=== PATIENT | male | born 1995 | race African-American/Black ===

== ENCOUNTER 2018-12-18 09:01 | Emergency (ER) | payer SELFPAY ==
[2018-12-18] MEDS ORDERED: NORMAL SALINE 1000 ML 1,000 ML IV ONE (09:32)
--- NOTE | 2018-12-18 09:33 | ER Document Report ---
ED Medical Screen (RME) - General Chief Complaint: Rectal Bleeding Stated Complaint: URINARY PROBLEM Time Seen by Provider: 12/18/18 09:30 Mode of Arrival: Ambulatory Information source: Patient Notes: Patient presents complaining of abdominal pain and rectal bleeding that is been off and on for the past 6 months but has started to become daily. Patient states sometimes he will have pain without bleeding sometimes bleeding without pain. Patient states that sometimes the stool is firm sometimes he has diarrhea. Patient denies any fever. Patient denies any hemorrhoids. Patient denies any other abnormal bleeding or bruising I have greeted and performed a rapid initial assessment of this patient. A comprehensive ED assessment and evaluation of the patient, analysis of test results and completion of the medical decision making process will be conducted by additional ED providers. TRAVEL OUTSIDE OF THE [place] IN LAST 30 DAYS: No - Related Data Allergies/Adverse Reactions: No Known Allergies Allergy (Verified 12/18/18 09:30) Physical Exam - Vital signs Vitals: Temp Pulse Resp BP Pulse Ox 98.3 F 68 18 106/55 L 100 12/18/18 09:08 12/18/18 09:08 12/18/18 09:08 12/18/18 09:08 12/18/18 09:08 - Abdominal Tenderness: Tender - Generalized abdomen Course - Vital Signs Vital signs: Temp Pulse Resp BP Pulse Ox 98.3 F 68 18 106/55 L 100 12/18/18 09:08 12/18/18 09:08 12/18/18 09:08 12/18/18 09:08 12/18/18 09:08
[2018-12-18 10:20] LABS: ABSOLUTE BASOPHILS # (AUTO) 0.1 10^3/uL (0.0-0.2); ABSOLUTE EOSINOPHILS # (AUTO) 0.1 10^3/uL (0.0-0.6); ABSOLUTE LYMPHOCYTES (AUTO) 1.9 10^3/uL (0.5-4.7); ABSOLUTE MONOCYTES (AUTO) 0.5 10^3/uL (0.1-1.4); ABSOLUTE NEUT (AUTO) 2.6 10^3/uL (1.7-8.2); BASOPHILS % (AUTO) 1.4 % (0-2); EOSINOPHILS % (AUTO) 1.9 % (0-6); HEMATOCRIT 36.4 % (37.9-51.0); LYMPHOCYTES % (AUTO) 36.5 % (13-45); MEAN CORPUSCULAR HEMOGLOBIN 29.2 pg (27.0-33.4); MEAN CORPUSCULAR VOLUME 88 fl (80-97); MONOCYTES % (AUTO) 9.6 % (3-13); PLATELET COUNT 217 10^3/uL (150-450); RED BLOOD COUNT 4.11 10^6/uL (4.35-5.55); RED CELL DISTRIBUTION WIDTH 13.8 % (11.5-14.0); SEGMENTED NEUTROPHILS % (AUTO) 50.6 % (42-78); TOTAL CELLS COUNTED % (AUTO) 100 %; WHITE BLOOD COUNT 5.2 10^3/uL (4.0-10.5)
[2018-12-18 10:27] LABS: INTERNATIONAL RATION (INR) 1.03; PROTHROMBIN TIME 13.6 SEC (11.4-15.4)
[2018-12-18 10:28] LABS: PARTIAL THROMBOPLASTIN TIME 28.6 SEC (23.5-35.8)
[2018-12-18 11:10] LABS: AMORPHOUS SEDIMENT,URINE TRACE /HPF; APPEARANCE,URINE CLOUDY; BILIRUBIN,URINE NEGATIVE (NEGATIVE); COLOR,URINE YELLOW; GLUCOSE, URINE NEGATIVE (NEGATIVE); KETONES,URINE NEGATIVE (NEGATIVE); LEUKOCYTE ESTERASE,URINE NEGATIVE (NEGATIVE); NITRITE,URINE NEGATIVE (NEGATIVE); PROTEIN,URINE NEGATIVE (NEGATIVE); URINE SPECIFIC GRAVITY 1.024; UROBILINOGEN,URINE NEGATIVE mg/dL (<2.0)
[2018-12-18 11:47] LABS: ALANINE AMINOTRANSFERASE 22 U/L (21-72); ALBUMIN 4.2 g/dL (3.5-5.0); ALKALINE PHOSPHATASE 48 U/L (38-126); ANION GAP 6 (5-19); ASPARTATE AMINO TRANSFERASE 32 U/L (17-59); BILIRUBIN,DIRECT 0.2 mg/dL (0.0-0.4); BILIRUBIN,TOTAL 0.3 mg/dL (0.2-1.3); BLOOD UREA NITROGEN 12 mg/dL (7-20); CALCIUM 8.9 mg/dL (8.4-10.2); CARBON DIOXIDE 28 mmol/L (22-30); CHLORIDE 108 mmol/L (98-107); GLUCOSE 87 mg/dL (75-110); POTASSIUM 4.7 mmol/L (3.6-5.0); TOTAL PROTEIN 7.3 g/dL (6.3-8.2)
--- NOTE | 2018-12-18 12:04 | ER Document Report ---
ED General - General Chief Complaint: Rectal Bleeding Stated Complaint: URINARY PROBLEM Time Seen by Provider: 12/18/18 09:30 Primary Care Provider: ANATOLIY HOOKS MD [ACTIVE STAFF] - Follow up in 1 week (FOR GI FOLLOW UP) Mode of Arrival: Ambulatory TRAVEL OUTSIDE OF THE [place] IN LAST 30 DAYS: No - HPI Notes: 23-year-old male to the emergency department with complaints of rectal bleeding for the past 6 months. States initially it was just intermittent in occurrence but now he has had rectal bleeding every single day. States that he notices it most when he is going to the bathroom. States he sees the blood both in the toilet bowl and on the toilet paper. States that he has been having harder bowel movements and often will be straining during bowel movement. States that he has around 4 bowel movements a day. States that prior to having the bowel movements he has lower abdominal cramping which is then relieved by evacuation. States that he does not hydrate regularly. Denies fevers, chills, chest pain, shortness of breath, passing out, lightheadedness. He has not seen any physician for this problem until now. He does smoke. He does not have any history of inflammatory bowel disease in himself or in family. He does not have any family history of colon cancer. - Related Data Allergies/Adverse Reactions: No Known Allergies Allergy (Verified 12/18/18 09:30) Past Medical History - General Information source: Patient - Social History Smoking Status: Current Every Day Smoker Chew tobacco use (# tins/day): No Frequency of alcohol use: Occasional Drug Abuse: None Family History: Reviewed & Not Pertinent, Other - No hx of IBD or Colon cancer Patient has suicidal ideation: No Patient has homicidal ideation: No Renal/ Medical History: Denies: Hx Peritoneal Dialysis Review of Systems - Review of Systems Constitutional: denies: Chills, Fever EENT: No symptoms reported Cardiovascular: denies: Chest pain, Palpitations, Syncope, Dizziness, Lightheaded Respiratory: denies: Cough, Short of breath Gastrointestinal: Abdominal pain - abdominal cramping prior to having bowel movement, Constipation, Rectal bleeding. denies: Diarrhea, Nausea, Vomiting, Blood streaked bowels, Black stools Genitourinary: No symptoms reported Skin: No symptoms reported Neurological/Psychological: No symptoms reported -: Yes All other systems reviewed and negative Physical Exam - Vital signs Vitals: Temp Pulse Resp BP Pulse Ox 98.3 F 68 18 106/55 L 100 12/18/18 09:08 12/18/18 09:08 12/18/18 09:08 12/18/18 09:08 12/18/18 09:08 Interpretation: Normal - General General appearance: Appears well, Alert - HEENT Head: Normocephalic, Atraumatic Eyes: Normal Pupils: PERRL - Respiratory Respiratory status: No respiratory distress Chest status: Nontender Breath sounds: Normal Chest palpation: Normal - Cardiovascular Rhythm: Regular Heart sounds: Normal auscultation Murmur: No - Abdominal Inspection: Normal Distension: No distension Bowel sounds: Normal Tenderness: Nontender Organomegaly: No organomegaly - Rectal Notes: Initially patient agreed to rectal exam. Was able to inspect the outside of the rectum with noted external hemorrhoids that were not actively bleeding. With patient's permission, went to perform digital rectal exam however prior to completing exam patient requested to not have exam. Chaperoned by KAYLEE Oviedo. - Neurological Neuro grossly intact: Yes Cognition: Normal Orientation: AAOx4 Spur Coma Scale Eye Opening: Spontaneous Devin Coma Scale Verbal: Oriented Devin Coma Scale Motor: Obeys Commands Devin Coma Scale Total: 15 Speech: Normal Motor strength normal: LUE, RUE, LLE, RLE Sensory: Normal - Psychological Associated symptoms: Normal affect, Normal mood - Skin Skin Temperature: Warm Skin Moisture: Dry Skin Color: Normal Course - Vital Signs Vital signs: Temp Pulse Resp BP Pulse Ox 98.3 F 68 18 106/55 L 100 12/18/18 09:08 12/18/18 09:08 12/18/18 09:08 12/18/18 09:08 12/18/18 09:08 - Laboratory Result Diagrams: 12/18/18 09:56 12/18/18 11:16 Laboratory results interpreted by me: 12/18/18 12/18/18 09:56 11:16 RBC 4.11 L Hgb 12.0 L Hct 36.4 L Chloride 108 H - Transfer of Care Notes: 12/18/18 12:37 Impression: Rectal bleeding, external hemorrhoids. Patient would not allow for full digital rectal exam. Noted H&H which are stable as well as vital signs. Patient's history is most consistent with constipation and straining which could lead to his external hemorrhoids that bleed. Will send home with MiraLAX and Anusol but will also send home with GI consultation. Patient agrees with the plan and urged the importance of following up with GI. Discharge - Discharge Clinical Impression: External hemorrhoid, Rectal bleeding, Constipation Condition: Good Disposition: HOME, SELF-CARE Instructions: Constipation ([facility]), Hemorrhoids ([facility]), Rectal Bleeding, Unclear Cause ([facility]) Additional Instructions: USE MEDICINE PRESCRIBED. FOLLOW UP WITH GI SPECIALIST WITHOUT FAIL. RETURN IF WORSENING BLEEDING, PASSING OUT, CHEST PAIN. Prescriptions: Phenylephrine HCl [Anusol Suppository] 1 supp.rect [place] BID #28 supp.rect Polyethylene Glycol 3350 [Miralax Powder 17 gm/Packet] 1 packet PO DAILY #1 pkg Referrals: ANATOLIY HOOKS MD [ACTIVE STAFF] - Follow up in 1 week (FOR GI FOLLOW UP)
[2018-12-18 12:54] VITALS: BP 101/57
== END 2018-12-18 12:54 | disposition home or self-care (01) ==
LOC: ER 09:01
DX: K62.5 Hemorrhage of anus and rectum (principal); K64.4 Residual hemorrhoidal skin tags; K59.00 Constipation, unspecified; R10.30 Lower abdominal pain, unspecified; F17.200 Nicotine dependence, unspecified, uncomplicated
CPT/HCPCS: 99283; 96360; 36415; 85025; 85610; 85730; 80053; 81001; J7030

== ENCOUNTER 2019-06-25 02:39 | Emergency (ER) | payer SELFPAY ==
[2019-06-25] MEDS ORDERED: DIPH/PERTUSS(ACELL)/TETANUS VAC/PF 0.5 ML SYR (>=10YO) IM ONE (02:50)
[2019-06-25] MEDS ORDERED: LORAZEPAM INJ 2 MG/1 ML VIAL IV ONE (02:57)
[2019-06-25 03:06] LABS: ABSOLUTE BASOPHILS # (AUTO) 0.1 10^3/uL (0.0-0.2); ABSOLUTE LYMPHOCYTES (AUTO) 4.2 10^3/uL (0.5-4.7); ABSOLUTE MONOCYTES (AUTO) 0.8 10^3/uL (0.1-1.4); ABSOLUTE NEUT (AUTO) 4.8 10^3/uL (1.7-8.2); BASOPHILS % (AUTO) 0.8 % (0-2); EOSINOPHILS % (AUTO) 0.3 % (0-6); HEMATOCRIT 30.3 % (37.9-51.0); HEMOGLOBIN 9.2 g/dL (13.5-17.0); LYMPHOCYTES % (AUTO) 42.1 % (13-45); MEAN CORPUSCULAR HEMOGLOBIN 20.5 pg (27.0-33.4); MEAN CORPUSCULAR HGB CONC 30.6 g/dL (32.0-36.0); MEAN CORPUSCULAR VOLUME 67 fl (80-97); MONOCYTES % (AUTO) 8.3 % (3-13); PLATELET COUNT 316 10^3/uL (150-450); RED BLOOD COUNT 4.52 10^6/uL (4.35-5.55); RED CELL DISTRIBUTION WIDTH 21.1 % (11.5-14.0); SEGMENTED NEUTROPHILS % (AUTO) 48.5 % (42-78); TOTAL CELLS COUNTED % (AUTO) 100 %
[2019-06-25 03:16] LABS: ALBUMIN 5.1 g/dL (3.5-5.0); ALCOHOL 198 mg/dL (NONE DETECTED); ALKALINE PHOSPHATASE 54 U/L (38-126); ASPARTATE AMINO TRANSFERASE 36 U/L (17-59); BILIRUBIN,DIRECT 0.2 mg/dL (0.0-0.4); BILIRUBIN,TOTAL 0.4 mg/dL (0.2-1.3); BLOOD UREA NITROGEN 9 mg/dL (7-20); CALCIUM 9.5 mg/dL (8.4-10.2); CARBON DIOXIDE 16 mmol/L (22-30); GLUCOSE 149 mg/dL (75-110); PROTHROMBIN TIME 14.2 SEC (11.4-15.4); TOTAL PROTEIN 8.8 g/dL (6.3-8.2)
[2019-06-25 03:20] LABS: ANION GAP 22 (5-19); CHLORIDE 108 mmol/L (98-107)
[2019-06-25] MEDS ORDERED: HALOPERIDOL LACTATE INJ 5 MG/1 ML VIAL IV ONE ×4 (03:29→05:46)
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
[2019-06-25 04:22] LABS: APPEARANCE,URINE CLEAR; BILIRUBIN,URINE NEGATIVE (NEGATIVE); COLOR,URINE STRAW; GLUCOSE, URINE NEGATIVE (NEGATIVE); KETONES,URINE NEGATIVE (NEGATIVE); LEUKOCYTE ESTERASE,URINE NEGATIVE (NEGATIVE); NITRITE,URINE NEGATIVE (NEGATIVE); PROTEIN,URINE NEGATIVE (NEGATIVE); URINE SPECIFIC GRAVITY 1.047; UROBILINOGEN,URINE NEGATIVE mg/dL (<2.0)
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
[2019-06-25 04:39] LABS: URINE AMPHETAMINES SCREEN NEGATIVE; URINE BARBITURATES SCREEN NEGATIVE; URINE BENZODIAZEPINES SCREEN NEGATIVE; URINE COCAINE SCREEN NEGATIVE; URINE METHADONE SCREEN NEGATIVE; URINE PHENCYCLIDINE SCREEN NEGATIVE
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
[2019-06-25 04:46] LABS: URINE MARIJUANA (THC) SCREEN UNCONFIRMED POSITIVE
[2019-06-25] MEDS ORDERED: NORMAL SALINE 500 ML IV ONE (05:15)
[2019-06-25] MEDS ORDERED: HALOPERIDOL LACTATE INJ 5 MG/1 ML VIAL ONE (05:35)
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
[2019-06-25] MEDS ORDERED: ONDANSETRON HCL INJ/PF 4 MG/2 ML SDV IV ONE (06:26)
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
[2019-06-25 07:41] VITALS: BP 129/86
--- NOTE | 2019-06-25 09:11 | EKG REPORT ---
SEVERITY:- BORDERLINE ECG - SINUS RHYTHM BORDERLINE PROLONGED QT INTERVAL : Confirmed by: Sidney Martinez MD 25-Jun-2019 09:10:41
== END 2019-06-25 07:38 | disposition short-term general hospital (02) ==
LOC: ER 02:39
DX: S09.93XA Unspecified injury of face, initial encounter (principal); S09.8XXA Other specified injuries of head, initial encounter; Y04.2XXA Assault by strike against or bumped into by another person, initial encounter; E87.2 Acidosis; R56.9 Unspecified convulsions; R11.10 Vomiting, unspecified; F17.200 Nicotine dependence, unspecified, uncomplicated; Z23 Encounter for immunization; R40.2420 Glasgow coma scale score 9-12, unspecified time
CPT/HCPCS: 93005; 96376; 99291; 96361; 90471; 96374; 96375; 36415; 82962; 80307 ×2; 85025; 85610; 80053; 81001; 71045; 70450; 70486; 71260; 72125; 74177; 90715; 93010; J1630; J2060; J2405; J7040

== ENCOUNTER 2019-12-08 11:07 | Emergency (ER) | payer SELFPAY ==
[2019-12-08 11:13] VITALS: BP 124/53
--- NOTE | 2019-12-08 11:26 | ER Document Report ---
HPI - HPI Patient complains to provider of: Keloid left ear Time Seen by Provider: 12/08/19 11:17 Onset: Other - Long time Onset/Duration: Gradual Quality of pain: Achy Severity: Severe Pain Level: 5 Context: 24-year-old male presented to ED for keloid to the left earlobe. He states he had a ear piercing took it out and then this not grew on his earlobe. He states he is talked to his family and they told him that he have keloid skin and they should not get piercings. He states he knows he cannot do it again but he does not know how to remove this 1 that he has. I explained to him that we do not remove them in the ED that he would not need to go to a plastic surgeon or ears nose and throat specialist. He states he will could he go to. I did call ears nose [facility] throat and they said they do remove the keloids. I did give him their name and number to follow-up for consult for removing this keloid. Associated Symptoms: Other - Keloid to left ear Exacerbated by: Denies Relieved by: Denies Similar symptoms previously: Yes Recently seen / treated by doctor: No - ROS ROS below otherwise negative: Yes - CONSTITUTIONAL Constitutional: DENIES: Fever, Chills - EENT EENT: REPORTS: Ear Pain - Keloid to earlo - NEURO Neurology: DENIES: Headache, Weakness, Vision blurred, Dizzinesss / Vertigo - CARDIOVASCULAR Cardiovascular: DENIES: Chest pain - RESPIRATORY Respiratory: DENIES: Trouble Breathing, Coughing - REPRODUCTIVE Reproductive: DENIES: :, Postmenopausal, Abnormal bleeding / discharge - MUSCULOSKELETAL Musculoskeletal: DENIES: Extremity pain, Back Pain, Neck Pain, Swelling - DERM Skin Color: Normal, Other - Keloid to left earlobe Skin Problems: None Past Medical History - General Information source: Patient - Social History Smoking Status: Current Every Day Smoker Cigarette use (# per day): Yes - 1 black in mild a day Frequency of alcohol use: Occasional Drug Abuse: None Family History: Reviewed & Not Pertinent, Other - No hx of IBD or Colon cancer Patient has homicidal ideation: No - Past Medical History Cardiac Medical History: Reports: None Pulmonary Medical History: Reports: None EENT Medical History: Reports: None Neurological Medical History: Reports: None Endocrine Medical History: Reports: None Renal/ Medical History: Reports: None Malignancy Medical History: Reports None GI Medical History: Reports: None Musculoskeletal Medical History: Reports None Skin Medical History: Reports None Psychiatric Medical History: Reports: None Traumatic Medical History: Reports: None Surgical Hx: Negative Past Surgical History: Reports: None Vertical Provider Document - CONSTITUTIONAL Agree With Documented VS: Yes Exam Limitations: No Limitations General Appearance: WD/WN, No Apparent Distress - INFECTION CONTROL TRAVEL OUTSIDE OF THE [place] IN LAST 30 DAYS: No - HEENT HEENT: Atraumatic, PERRLA Notes: Keloid to left earlobe - NECK Neck: Normal Inspection, Supple, Thyroid Normal - RESPIRATORY Respiratory: Breath Sounds Normal, No Respiratory Distress - CARDIOVASCULAR Cardiovascular: Regular Rate, Regular Rhythm - MUSCULOSKELETAL/EXTREMETIES Musculoskeletal/Extremeties: MAEW, FROM, Non-Tender - NEURO Level of Consciousness: Awake, Alert, Appropriate Motor/Sensory: No Motor Deficit, No Sensory Deficit Deep Tendon Reflexes: 2+ - DERM Notes: Keloid left earlobe Course - Vital Signs Vital signs: Temp Pulse Resp BP Pulse Ox 98.6 F 77 20 124/53 L 100 12/08/19 11:17 12/08/19 11:11 12/08/19 11:11 12/08/19 11:11 12/08/19 11:11 Discharge - Discharge Clinical Impression: ear keloid Condition: Stable Disposition: HOME, SELF-CARE Additional Instructions: He was seen today for a large keloid to your left ear Spoken with ears nose and throat. They stated they do not remove keloids from the ear. These call them to talk to them as discussed when to have this removed. FOLLOW-UP CARE: If you have been referred to a physician for follow-up care, call the physicians office for an appointment as you were instructed or within the next two days. If you experience worsening or a significant change in your symptoms, notify the physician immediately or return to the Emergency Department at any time for re-evaluation. Referrals: GABI CLANCY MD [ACTIVE STAFF] - Follow up as needed
== END 2019-12-08 11:28 | disposition home or self-care (01) ==
LOC: ER 11:07
DX: L91.0 Hypertrophic scar (principal); H92.02 Otalgia, left ear; F17.210 Nicotine dependence, cigarettes, uncomplicated
CPT/HCPCS: 99282

== ENCOUNTER 2019-12-21 23:47 | Emergency (ER) | payer SELFPAY ==
--- NOTE | 2019-12-22 00:25 | ER Document Report ---
ED Medical Screen (RME) - General Chief Complaint: Pain With Urination Stated Complaint: PAINFUL URINATION, ABDOMINAL PAIN Notes: Patient is a 24-year-old -[place] male with no reported past medical history who presents to the emergency department the chief complaint of dysuria, burning with urination. States he has had recent unprotected sexual encounters and is concerned for STD. States that he also has noticed some bleeding from his "butt". He states he is not sure if he has a "hernia or what". States he would like to also have that evaluated. Denies abdominal pain, penile discharge, testicular pain or swelling, lesions or rashes or fevers. No history of STD. I have treated and performed a rapid initial assessment of this patient. A comprehensive ED assessment and evaluation of the patient, analysis of test results and completion of medical decision making process will be conducted by additional ED providers. PHYSICAL EXAMINATION: GENERAL: Well-appearing, well-nourished and in no acute distress. A&Ox4. Answers questions appropriately. TRAVEL OUTSIDE OF THE [place] IN LAST 30 DAYS: No - Related Data Allergies/Adverse Reactions: No Known Allergies Allergy (Verified 12/18/18 09:30) Past Medical History Renal/ Medical History: Denies: Hx Peritoneal Dialysis Physical Exam - Vital signs Vitals: Temp Pulse Resp BP Pulse Ox 98.1 F 78 16 101/46 L 99 12/22/19 00:08 12/22/19 00:08 12/22/19 00:08 12/22/19 00:08 12/22/19 00:08 Course - Vital Signs Vital signs: Temp Pulse Resp BP Pulse Ox 98.1 F 78 16 101/46 L 99 12/22/19 00:08 12/22/19 00:08 12/22/19 00:08 12/22/19 00:08 12/22/19 00:08
[2019-12-22 00:53] LABS: ABSOLUTE BASOPHILS # (AUTO) 0.1 10^3/uL (0.0-0.2); ABSOLUTE EOSINOPHILS # (AUTO) 0.1 10^3/uL (0.0-0.6); ABSOLUTE LYMPHOCYTES (AUTO) 3.2 10^3/uL (0.5-4.7); ABSOLUTE MONOCYTES (AUTO) 0.7 10^3/uL (0.1-1.4); ABSOLUTE NEUT (AUTO) 3.3 10^3/uL (1.7-8.2); BASOPHILS % (AUTO) 0.9 % (0-2); EOSINOPHILS % (AUTO) 1.3 % (0-6); HEMATOCRIT 34.5 % (37.9-51.0); HEMOGLOBIN 11.1 g/dL (13.5-17.0); LYMPHOCYTES % (AUTO) 43.7 % (13-45); MEAN CORPUSCULAR HEMOGLOBIN 23.4 pg (27.0-33.4); MEAN CORPUSCULAR HGB CONC 32.2 g/dL (32.0-36.0); MEAN CORPUSCULAR VOLUME 73 fl (80-97); MONOCYTES % (AUTO) 9.4 % (3-13); PLATELET COUNT 234 10^3/uL (150-450); RED BLOOD COUNT 4.75 10^6/uL (4.35-5.55); RED CELL DISTRIBUTION WIDTH 21.8 % (11.5-14.0); SEGMENTED NEUTROPHILS % (AUTO) 44.7 % (42-78); TOTAL CELLS COUNTED % (AUTO) 100 %; WHITE BLOOD COUNT 7.4 10^3/uL (4.0-10.5)
[2019-12-22 01:39] LABS: ANION GAP 9 (5-19); BLOOD UREA NITROGEN 15 mg/dL (7-20); CALCIUM 9.8 mg/dL (8.4-10.2); CARBON DIOXIDE 25 mmol/L (22-30); CHLORIDE 105 mmol/L (98-107); GLUCOSE 138 mg/dL (75-110); POTASSIUM 3.8 mmol/L (3.6-5.0)
[2019-12-22 01:46] LABS: APPEARANCE,URINE CLEAR; BILIRUBIN,URINE NEGATIVE (NEGATIVE); COLOR,URINE YELLOW; GLUCOSE, URINE NEGATIVE (NEGATIVE); KETONES,URINE NEGATIVE (NEGATIVE); PROTEIN,URINE NEGATIVE (NEGATIVE); URINE SPECIFIC GRAVITY 1.029
[2019-12-22 02:11] LABS: CHLAM PCR NOT DETECTED (NOT DETECT)
[2019-12-22 05:38] VITALS: BP 128/74
== END 2019-12-22 06:10 | disposition left against medical advice (07) ==
LOC: ER 23:47
DX: R30.0 Dysuria (principal); K62.5 Hemorrhage of anus and rectum; Z20.2 Contact with and (suspected) exposure to infections with a predominantly sexual mode of transmission; Z53.20 Procedure and treatment not carried out because of patient's decision for unspecified reasons
CPT/HCPCS: 36415; 80048; 81001; 85025; 87086; 87491; 87591; 99281